=== PATIENT | female | born 1980 | race Caucasian/White ===

== ENCOUNTER 2020-04-20 09:18 | Emergency (ER) | payer OTHER ==
[~2020-04-20] VITALS: Ht 162.6 cm; Wt 122.0 kg
[2020-04-20 10:36] LABS: Source, Urine Clean Catch
[2020-04-20 10:47] LABS: Bilirubin, Urine Neg (Neg); Blood, Urine Neg (Neg); Glucose Qualitative, Urine Neg (Neg); Ketones, Urine Neg (Neg); Leukocyte Esterase, Urine 2+ (Neg); Nitrite, Urine Pos (Neg); Protein, Urine Neg (Neg); Specific Gravity, Urine 1.015 (1.003-1.022); Urobilinogen, Urine NORM (Normal)
[2020-04-20 10:54] LABS: Appearance, Urine Hazy (Clear); Color, Urine Yellow (P-Yellow)
[2020-04-20 10:56] LABS: Bacteria Many /hpf; Red Blood Cells, Urine 0-2 /hpf (0-2); Squamous Epithelial Cells Mod /hpf (Few)
[2020-04-20] MEDS ORDERED: CEPH500 PO (11:50)
[2020-04-20] MEDS ORDERED: LEVSOD75 PO (11:52)
== END 2020-04-20 11:53 | disposition home or self-care (01) ==
LOC: ER 09:18
PROVIDERS: Physician Assistant
DX: N39.0 Urinary tract infection, site not specified (principal); Z86.16 Personal history of COVID-19
CPT/HCPCS: 81001; 87077; 87086; 87186; 99283

== ENCOUNTER 2020-05-14 06:57 | Emergency (ER) | payer OTHER ==
[~2020-05-14] VITALS: Ht 165.1 cm; Wt 122.0 kg
[~2020-05-14 06:57] MED LIST: CEPH500 PO; LEVSOD75 PO
[2020-05-14] MEDS ORDERED: IRON18 MG PO (07:19)
[2020-05-14] MEDS ORDERED: THERA-D2000 UNIT PO (07:20)
[2020-05-14 07:30] LABS: Source, Urine Clean Catch
[2020-05-14 07:37] LABS: Appearance, Urine Clear (Clear); Bilirubin, Urine Neg (Neg); Blood, Urine Neg (Neg); Color, Urine Yellow (P-Yellow); Glucose Qualitative, Urine Neg (Neg); Ketones, Urine Neg (Neg); Leukocyte Esterase, Urine 1+ (Neg); Nitrite, Urine Neg (Neg); Protein, Urine 2+ (Neg); Urobilinogen, Urine NORM (Normal); pH, Urine 6.5 (5.0-8.0)
[2020-05-14 07:57] LABS: Bacteria Rare /hpf; Squamous Epithelial Cells Few /hpf (Few)
[2020-05-14 08:02] LABS: Transitional Epithelial Cells Rare /hpf (0-Rare)
[2020-05-14 08:45] LABS: Candida species (DNA Probe) Negative (NEGATIVE); G. vaginalis (DNA Probe) Negative (NEGATIVE); T. vaginalis (DNA Probe) Negative (NEGATIVE)
[2020-05-14] MEDS ORDERED: DOXY100 PO (09:12)
[2020-05-14] MEDS ORDERED: CEPH500 PO (09:14)
[2020-05-16 05:08] LABS: CHLAMYDIA TRACHOMATIS, NAA Negative (Negative)
== END 2020-05-14 10:16 | disposition home or self-care (01) ==
LOC: ER 06:57
PROVIDERS: Emergency Medicine
DX: N39.0 Urinary tract infection, site not specified (principal)
CPT/HCPCS: 81001; 81025; 87077; 87086; 87186; 87480; 87491; 87510; 87591; 87660; 96372; 99283-25; J0696